=== PATIENT | male | born 1980 | race American Indian/Alaskan Native ===

== ENCOUNTER 2016-08-26 03:00 | Emergency (ER) | payer SELFPAY ==
[2016-08-26 03:14] VITALS: BP 143/93
== END 2016-08-26 03:08 | disposition left against medical advice (07) ==
LOC: ED 03:00
DX: M54.2 Cervicalgia (principal); M54.9 Dorsalgia, unspecified; V49.9XXA Car occupant (driver) (passenger) injured in unspecified traffic accident, initial encounter; W22.10XA Striking against or struck by unspecified automobile airbag, initial encounter; Y93.89 Activity, other specified; Y99.9 Unspecified external cause status; Y92.410 Unspecified street and highway as the place of occurrence of the external cause; Z53.21 Procedure and treatment not carried out due to patient leaving prior to being seen by health care provider